=== PATIENT | female | born 1955 | race American Indian/Alaskan Native ===

== ENCOUNTER 2018-12-30 22:25 | Emergency (ER) | payer MEDICARE ==
[2018-12-30 22:32] VITALS: BP 155/71
[2018-12-31 00:32] LABS: Bilirubin,Urine NEG (Negative); Blood,Urine SM (Negative); Color,Urine Yellow (Yellow); Hyaline Casts,Urine 2 /LPF; Mucus,Urine 3+ /HPF; Protein,Urine <15 mg/dL mg/dL (Negative)
[2018-12-31] MEDS ORDERED: TORADOL IV ONE (03:19)
[2018-12-31 03:59] LABS: Basophils % (Auto) 0.6 % (0.0-1.8); Eosinophils # (Auto) 0.1 K/mm3 (0.0-0.4); Eosinophils % (Auto) 1.5 % (0.0-4.3); Hematocrit 35.8 % (30.3-42.9); Hemoglobin 12.2 gm/dl (10.1-14.3); Lymphocytes # (Auto) 2.4 K/mm3 (1.2-5.4); Lymphocytes % (Auto) 29.7 % (13.4-35.0); Mean Corpuscular HGB Conc 34 % (30-34); Mean Corpuscular Volume 91 fl (79-97); Monocytes # (Auto) 0.7 K/mm3 (0.0-0.8); Platelet Count 236 K/mm3 (140-440); Red Blood Count 3.94 M/mm3 (3.65-5.03); Red Cell Distribution Width 14.3 % (13.2-15.2)
[2018-12-31 04:34] LABS: Alanine Aminotransferase 13 units/L (7-56); BUN/Creatinine Ratio 19; Blood Urea Nitrogen 19 mg/dL (7-17); Calcium 9.4 mg/dL (8.4-10.2); Hemolysis Index 9
--- NOTE | 2018-12-31 05:55 | Cat Scan Report ---
CT ABDOMEN AND PELVIS WITHOUT CONTRAST INDICATION: left flank pain, hematuria CONTRAST: Without IV COMPARISON: None available. All CT scans at this location are performed using CT dose reduction for ALARA by means of automated e xposure control. NOTE: Resolution is decreased and artifact is introduced by the patient's size. FINDINGS: Lung bases are clear. No pneumoperitoneum is seen. Colonic diverticulosis is seen without e vidence of diverticulitis. Appendix appears within normal limits. No evidence of bowel obstruction is seen. No free fluid is noted. No urinary tract calculi or evidence of obstruction are seen. The left kidney shows a 3.8 cm water density cyst in the upper pole posteriorly with 2 dependent calcificatio ns. There is also a probable cyst laterally in the upper to mid left kidney measuring 12 mm. No other masses are seen. No lymphadenopathy is noted. No focal inflammatory changes are seen. Large gallston es are seen in a contracted gallbladder. No biliary dilatation seen. Pancreas appears within normal l imits. No abdominal wall hernia is seen. IMPRESSION: 1. No acute abnormalities are seen 2. Cholelithiasis 3. Mildly complex cyst in the left kidney and probable other cysts seen as above. Recommend follow-up . Signer Name: Davion Rodriguez MD Signed: 12/31/2018 5:51 AM Workstation Name: [id number]
--- NOTE | 2018-12-31 06:47 | Emergency Department Report ---
ED General Adult HPI - General Chief complaint: Abdominal Pain Stated complaint: LEFT SIDE PAIN Source: patient Mode of arrival: Ambulatory Limitations: No Limitations - History of Present Illness Initial comments: Patient is a 63-year-old -[place]i female with a history of hypertension and hyperlipidemia who presents to the ED with complaint of persistent left flank pain that radiates to the low back for the last 1 week, worse in the last 2 days. Patient denies fever, chills, nausea, vomiting, dizziness, dysuria, hematuria, urinary frequency and urgency, vaginal discharge, vaginal bleeding, diarrhea, constipation, traumatic injury, heavy lifting, fall, numbness and tingling of lower extremities bilaterally, chest pain or shortness of breath. MD Complaint: LEFT FLANK PAIN -: Sudden, week(s) (1) Location: back (LEFT LOWER BACK), abdomen (LEFT FLANK) Radiation: back (LOWER BACK) Severity scale (0 -10): 5 Quality: aching, dull Consistency: intermittent Improves with: none Worsens with: none Associated Symptoms: denies: confusion, chest pain, cough, diaphoresis, fever/chills, headaches, loss of appetite, malaise, nausea/vomiting, rash, seizure, shortness of breath, syncope, weakness Treatments Prior to Arrival: none - Related Data Home Medications Medication Instructions Recorded Confirmed Last Taken Ibuprofen [Motrin 600 MG tab] 800 mg PO Q8H PRN 09/03/15 03/12/16 03/11/16 16:00 Lisinopril/Hydrochlorothiazide 1 each PO DAILY 09/03/15 03/12/16 03/12/16 06:30 [Zestoretic 20-12.5 mg] Multivit-Min/FA/Lycopen/Lutein 1 tab PO DAILY 09/03/15 03/12/16 03/10/16 09:00 [Centrum Silver Tablet] Soquel-3/Dha/Epa/Fish Oil [Fish Oil 1 tab PO DAILY 09/03/15 03/12/16 03/10/16 09:00 Dr 500 mg Softgel] Simvastatin (Nf) [Zocor TAB] 20 mg PO QHS 09/03/15 03/12/16 03/11/16 06:30 Previous Rx's Medication Instructions Recorded Last Taken Type tiZANidine [Zanaflex 4mg TAB] 4 mg PO Q8H PRN #15 tablet 12/31/18 Unknown Rx traMADol [Ultram] 50 mg PO Q6HR PRN #15 tablet 12/31/18 Unknown Rx Allergies Allergy/AdvReac Type Severity Reaction Status Date / Time No Known Allergies Allergy Verified 05/15/14 03:07 ED Review of Systems ROS: Stated complaint: LEFT SIDE PAIN Other details as noted in HPI Constitutional: denies: chills, fever Eyes: denies: eye pain, eye discharge, vision change ENT: denies: ear pain, throat pain Respiratory: denies: cough, shortness of breath, wheezing Cardiovascular: denies: chest pain, palpitations Endocrine: no symptoms reported Gastrointestinal: abdominal pain (LEFT FLANK). denies: nausea, diarrhea Genitourinary: denies: urgency, dysuria, discharge Musculoskeletal: back pain (lower ). denies: joint swelling, arthralgia Skin: denies: rash, lesions Neurological: denies: headache, weakness, paresthesias Psychiatric: denies: anxiety, depression Hematological/Lymphatic: denies: easy bleeding, easy bruising ED Past Medical Hx - Past Medical History Previous Medical History?: Yes Hx Hypertension: Yes (X 10 YRS) Hx Arthritis: Yes - Surgical History Past Surgical History?: Yes Additional Surgical History: hysterectomy 87. Bilateral Knee replacement - Social History Smoking Status: Never Smoker Substance Use Type: None - Medications Home Medications: Home Medications Medication Instructions Recorded Confirmed Last Taken Type Ibuprofen [Motrin 600 MG tab] 800 mg PO Q8H PRN 09/03/15 03/12/16 03/11/16 16:00 History Lisinopril/Hydrochlorothiazide 1 each PO DAILY 09/03/15 03/12/16 03/12/16 06:30 History [Zestoretic 20-12.5 mg] Multivit-Min/FA/Lycopen/Lutein 1 tab PO DAILY 09/03/15 03/12/16 03/10/16 09:00 History [Centrum Silver Tablet] Soquel-3/Dha/Epa/Fish Oil [Fish Oil 1 tab PO DAILY 09/03/15 03/12/16 03/10/16 09:[address] 500 mg Softgel] Simvastatin (Nf) [Zocor TAB] 20 mg PO QHS 09/03/15 03/12/16 03/11/16 06:30 History tiZANidine [Zanaflex 4mg TAB] 4 mg PO Q8H PRN #15 tablet 12/31/18 Unknown Rx traMADol [Ultram] 50 mg PO Q6HR PRN #15 tablet 12/31/18 Unknown Rx ED Physical Exam - General Limitations: No Limitations General appearance: alert, in no apparent distress - Head Head exam: Present: atraumatic, normocephalic, normal inspection - Eye Eye exam: Present: normal appearance, PERRL, EOMI Pupils: Present: normal accommodation - ENT ENT exam: Present: normal exam, normal orophraynx, mucous membranes moist, TM's normal bilaterally, normal external ear exam - Neck Neck exam: Present: normal inspection, full ROM. Absent: tenderness - Respiratory Respiratory exam: Present: normal lung sounds bilaterally. Absent: respiratory distress, wheezes, rales, rhonchi, chest wall tenderness, accessory muscle use, prolonged expiratory - Cardiovascular Cardiovascular Exam: Present: regular rate, normal rhythm, normal heart sounds. Absent: systolic murmur, diastolic murmur, rubs, gallop - GI/Abdominal GI/Abdominal exam: Present: soft, tenderness (mildly tender lef flank area and lumbosacral area), normal bowel sounds. Absent: guarding, rebound, hyperactive bowel sounds, hypoactive bowel sounds, organomegaly - Extremities Exam Extremities exam: Present: normal inspection, full ROM, normal capillary refill - Back Exam Back exam: Present: normal inspection, full ROM, tenderness (palpable lumbosacral paraspinal musculoskeletal tenderness), muscle spasm, paraspinal tenderness. Absent: CVA tenderness (R), CVA tenderness (L), vertebral tenderness - Neurological Exam Neurological exam: Present: alert, oriented X3, CN II-XII intact, normal gait, reflexes normal - Psychiatric Psychiatric exam: Present: normal affect, normal mood - Skin Skin exam: Present: warm, dry, intact, normal color. Absent: rash ED Course Vital Signs 12/30/18 22:31 Temperature 97.9 F Pulse Rate 85 Respiratory 18 Rate Blood Pressure 155/71 O2 Sat by Pulse 99 Oximetry - Reevaluation(s) Reevaluation #1: 12/31/18 06:50 This is a 63-year-old female who presented to the ED with acute onset persistent left flank pain that radiates to the left lower back 1 week. In the ED, patient is alert and oriented 3 and is not in distress. Patient was treated for pain. Lab test results were reviewed and are nonactionable. Urinalysis however shows some moderate hematuria. Abdomen pelvis CT scan without contrast showed no a cute abnormalities are seen except for cholelithiasis and mildly complex cyst in the left kidney and probable other cysts seen as above. On reevaluation, patient's pain is well controlled with medications. Patient was discharged home on pain medications and advised to follow-up with her primary care physician in 5-7 days for reevaluation. Patient was advised to return to the ED immediately if symptoms get worse. ED Medical Decision Making - Lab Data Result diagrams: 12/31/18 03:34 12/31/18 03:34 - Radiology Data Radiology results: report reviewed, image reviewed Findings [facility] [address] [place] [address] Cat Scan Report Signed Patient: NANCY JONES MR#: [id number] : 1955 Acct:[id number] Age/Sex: 63 / F ADM Date: 12/30/18 Loc: ED Attending Dr: Ordering Physician: SOFIA DUDLEY Date of Service: 12/31/18 Procedure(s): CT abdomen pelvis wo con Accession Number(s): [id number] cc: SOFIA DUDLEY CT ABDOMEN AND PELVIS WITHOUT CONTRAST INDICATION: left flank pain, hematuria CONTRAST: Without IV COMPARISON: None available. All CT scans at this location are performed using CT dose reduction for ALARA by means of automated exposure control. NOTE: Resolution is decreased and artifact is introduced by the patient's size. FINDINGS: Lung bases are clear. No pneumoperitoneum is seen. Colonic diverticulosis is seen without evidence of diverticulitis. Appendix appears within normal limits. No evidence of bowel obstruction is seen. No free fluid is noted. No urinary tract calculi or evidence of obstruction are seen. The left kidney shows a 3.8 cm water density cyst in the upper pole posteriorly with 2 dependent calcifications. There is also a probable cyst laterally in the upper to mid left kidney measuring 12 mm. No other masses are seen. No lymphadenopathy is noted. No focal inflammatory changes are seen. Large gallstones are seen in a contracted gallbladder. No biliary dilatation seen. Pancreas appears within normal limits. No abdominal wall hernia is seen. IMPRESSION: 1. No acute abnormalities are seen 2. Cholelithiasis 3. Mildly complex cyst in the left kidney and probable other cysts seen as a artemio. Recommend follow- up. Signer Name: Davion Rodriguez MD Signed: 12/31/2018 5:51 AM Workstation Name: [email or web address] - Medical Decision Making This is a 63-year-old female who presented to the ED with acute onset persistent left flank pain that radiates to the left lower back 1 week. In the ED, patient is alert and oriented 3 and is not in distress. Patient was treated for pain. Lab test results were reviewed and are nonactionable. Urinalysis however shows some moderate hematuria. Abdomen pelvis CT scan without contrast showed no acute abnormalities are seen except for cholelithiasis and mildly complex cyst in the left kidney and probable other cysts seen as above. Patient symptoms are likely due to muscle spasm of the left lower back. On reevaluation, patient's pain is well controlled with medications. Patient was discharged home on pain medications and advised to follow-up with her primary care physician in 5-7 days for reevaluation. Patient was advised to return to the ED immediately if symptoms get worse. - Differential Diagnosis Left flank pain; kidney stones; muscle spasms; muscle strain Critical care attestation.: If time is entered above; I have spent that time in minutes in the direct care of this critically ill patient, excluding procedure time. ED Disposition Clinical Impression: Acute abdominal pain in left flank, Spasm of muscle of lower back Disposition: DC-01 TO HOME OR SELFCARE Is pt being admited?: No Does the pt Need Aspirin: No Condition: Stable Instructions: Abdominal Pain (ED), Muscle Spasm (ED) Additional Instructions: Take medication with food, drink plenty of fluids and follow up with your primary care physician in 5-7 days for reevaluation. Return to the ED i mmediately if symptoms get worse. Prescriptions: traMADol [Ultram] 50 mg PO Q6HR PRN #15 tablet PRN Reason: Pain tiZANidine [Zanaflex 4mg TAB] 4 mg PO Q8H PRN #15 tablet PRN Reason: Muscle Spasm Referrals: TASIA GONSALVES MD [Primary Care Provider] - 3-5 Days Time of Disposition: 06:42 Print Language: QATARI
== END 2018-12-31 06:50 | disposition home or self-care (01) ==
LOC: ED 22:25
DX: M62.830 Muscle spasm of back (principal); R10.9 Unspecified abdominal pain; I10 Essential (primary) hypertension; M19.90 Unspecified osteoarthritis, unspecified site; Z90.710 Acquired absence of both cervix and uterus; Z96.653 Presence of artificial knee joint, bilateral; Z79.899 Other long term (current) drug therapy
CPT/HCPCS: 36415; 74176; 80053; 81001; 83690; 84484; 85025; 96374; 99284; J1885